=== PATIENT | female | born 1955 | race Two or more races ===

== ENCOUNTER 2021-05-14 12:06 | Emergency (ER) | payer OTHER ==
[~2021-05-14] VITALS: Ht 152.4 cm; Wt 68.0 kg
[2021-05-14] MEDS ORDERED: TOPROL XL200 MG (12:24)
[2021-05-14] MEDS ORDERED: DILANTIN100 MG (12:25)
[2021-05-14] MEDS ORDERED: ATIVAN0.5 M1 PO (12:26)
[2021-05-14] MEDS ORDERED: KEPPRA750 MG (12:26)
[2021-05-14] MEDS ORDERED: QUETIAPINE FUM400 M1 (12:26)
[2021-05-14] MEDS ORDERED: PROTONIX40 MG PO (12:27)
[2021-05-14] MEDS ORDERED: DEPAKOTE ER250 MG PO (12:27)
[2021-05-14] MEDS ORDERED: VALSARTAN160 MG PO (12:28)
[2021-05-14] MEDS ORDERED: RESTORIL30 M1 PO (12:29)
[2021-05-14] MEDS ORDERED: BUTALBIT-ACETA1 EACH PO (17:27)
[2021-05-14] MEDS ORDERED: IMITREX50 MG PO (17:35)
== END 2021-05-14 18:18 | disposition home or self-care (01) ==
LOC: ER 12:06
DX: R51.9 Headache, unspecified (principal); Z20.822 Contact with and (suspected) exposure to COVID-19; I10 Essential (primary) hypertension